=== PATIENT | male | born 1940 | race Caucasian/White ===

== ENCOUNTER 2018-01-26 11:11 | Emergency (ER) | payer OTHER ==
[2018-01-26] MEDS ORDERED: LIDOCAINE 1% MPF 5 ML VIAL ONE (12:56)
[2018-01-26] MEDS ORDERED: TETANUS & DIPHTHERIA TOX,ADULT 0.5 ML VIAL ONE (13:00)
--- NOTE | 2018-01-26 14:06 | ER ---
Nurse's Notes [facility] Name: Tom Arriola Age: 77 yrs Sex: Male : 1940 Arrival Date: 01/26/2018 Time: 11:14 Bed 10 Private MD: Montana Laguna Diagnosis: Laceration without foreign body of right upper arm Presentation: 01/26 11:16 Presenting complaint: Patient states: right elbow laceration occurred about 30 minutes sv ago. Transition of care: patient was not received from another setting of care. Onset of symptoms was January 26, 2018 at 10:45. Care prior to arrival: None. 11:16 Method Of Arrival: Ambulatory sv 11:16 Acuity: ADAM 4 sv 14:15 Risk Assessment: Do you want to hurt yourself or someone else? Patient reports no ss desire to harm self or others. Initial Sepsis Screen: Does the patient meet any 2 criteria? No. Patient's initial sepsis screen is negative. Does the patient have a suspected source of infection? No. Patient's initial sepsis screen is negative. Historical: - Allergies: 11:18 Iodinated Contrast Media - IV Dye; sv - Home Meds: 11:20 Xarelto Oral [Active]; Lotrel 10-20 mg Oral cap 1 cap once daily [Active]; simvastatin sv 40 mg Oral tab 1 tab once daily [Active]; Magnesium Oxide Oral [Active]; garlic oral oral [Active]; CoQ-10 oral oral [Active]; multivitamin oral oral [Active]; tamsulosin oral oral [Active]; Fish Oil oral oral [Active]; FiberCon Oral [Active]; - PMHx: 11:18 Atrial Fib; High Cholesterol; Hypertension; sv - PSHx: 11:18 Tonsillectomy; cataract surgery; broken leg left; foot surgery right; heart cath; sv - Immunization history:: Last tetanus immunization: > 10 years ago. - Social history:: Smoking status: Patient/guardian denies using tobacco. - Ebola Screening: : No symptoms or risks identified at this time. Screenin:13 Abuse screen: Denies threats or abuse. Denies injuries from another. Nutritional ss screening: No deficits noted. Tuberculosis screening: Never had TB. Fall Risk None identified. Assessment: 12:08 General: Appears in no apparent distress. comfortable, Behavior is calm, cooperative. ss 12:09 Pain: Complains of pain in right elbow Pain currently is 2 out of 10 on a pain scale. ss Quality of pain is described as tender, numb. Neuro: Level of Consciousness is awake, alert, obeys commands, Oriented to person, place, time, situation. Cardiovascular: Heart tones S1 S2 present Capillary refill < 3 seconds is brisk in bilateral fingers Patient's skin is warm and dry. Respiratory: Airway is patent Respiratory effort is even, unlabored, Respiratory pattern is regular, symmetrical. EENT: Oral mucosa is moist. Derm: Skin is intact, is healthy with good turgor, Skin is dry, Skin is pink, warm \T\ dry. normal. Musculoskeletal: Circulation, motion, and sensation intact. Capillary refill < 3 seconds, is brisk, Range of motion: intact in all extremities, Swelling absent. Injury Description: Laceration sustained to right elbow is APPROX 3-4 CM LACERATION TO R ELBOW. NOT BLEEDING AT THIS TIME. PT REPORTS HE IS ON XARELTO. 12:13 Reassessment: Cleaned wound with saline, dressed with wet, loose dressing. Washed arms ss with soap and water as patient had debris from mowing. remains at bedside. Vital Signs: 11:18 BP 120 / 51; Pulse 38; Resp 18; Pulse Ox 98% ; Weight 68.04 kg; Height 5 ft. 8 in. sv (172.72 cm); Pain 2/10; 13:59 Temp 98.2; Pain 0/10; ss 11:18 Body Mass Index 22.81 (68.04 kg, 172.72 cm) sv 11:18 Pt stated that his HR is normally 35-40. sv ED Course: 11:14 Patient arrived in ED. sb2 11:14 Montana Laguna MD is Private Physician. sb2 11:17 Triage completed. sv 11:19 Arm band placed on left wrist. sv 11:21 Patient placed in waiting room, Patient notified of wait time. sv 12:08 Tiny Rivas, TOM is Primary Nurse. ss 12:11 Giovanni Burr NP is PHCP. pm1 12:11 Slick Richmond MD is Attending Physician. pm1 12:13 Patient has correct armband on for positive identification. ss 13:59 Assist provider with laceration repair on above R elbow that was between 2.6 to 7.5 cm ss using sutures. 14:04 Montana Laguna MD is Referral Physician. pm1 14:15 Patient did not have IV access during this emergency room visit. Administered Medications: 13:06 Drug: Tetanus-Diphtheria Toxoid Adult 0.5 ml {Nursing Aide: [employer]. Exp: ss 04/15/2020. Lot #: [id number]. } Route: IM; Site: left deltoid; 13:59 Follow up: Response: No adverse reaction 13:40 Drug: Lidocaine (1 %) 5 ml {Note: administered by Giovanni Burr NP.} Volume: 5 ml; ss Route: Infiltration; Outcome: 14:05 Discharge ordered by . pm1 14:15 Discharged to home ambulatory, with significant other. 14:15 Condition: good 14:15 Discharge instructions given to patient, family, Instructed on discharge instructions, follow up and referral plans. Demonstrated understanding of instructions, follow-up care. 14:16 Patient left the ED. Signatures: Francoise Dee RN RN Tiny Rivas RN RN Giovanni Burr NP MARKETING SUMMER INTERN pm1 Rosi Cadena sb2 Corrections: (The following items were deleted from the chart) 11:33 11:18 BP 120 / 51; Pulse 38bpm; Resp 18bpm; Pulse Ox 98%; 68.04 kg; Height 5 ft. 8 in.; sv BMI: 22.8; Pain 2/10; sv 12:13 12:08 General: Behavior is [facility]
--- NOTE | 2018-01-26 14:06 | EDPHYS ---
Physician Documentation [facility] Name: Tom Arriola Age: 77 yrs Sex: Male : 1940 Arrival Date: 01/26/2018 Time: 11:14 Bed 10 Private MD: Montana Laguna ED Physician Slick Richmond HPI: 01/26 13:00 This 77 yrs old Male presents to ER via Ambulatory with complaints of Arm pm1 Injury, Laceration To Arm. 13:00 The patient or guardian complains of a laceration. The complaints affect the right pm1 elbow. Context: The problem was sustained at home, resulted from Laceration against door latch . Onset: The symptoms/episode began/occurred just prior to arrival. Treatment prior to arrival includes: no previous treatment. Modifying factors: The symptoms are alleviated by nothing. the symptoms are aggravated by nothing. Associated signs and symptoms: Pertinent negatives: decreased range of motion, deformity, numbness, tingling. The patient has not experienced similar symptoms in the past. The patient has not recently seen a physician, the patient's primary care provider is Dr. Laguna. Historical: - Allergies: 11:18 Iodinated Contrast Media - IV Dye; sv - Home Meds: 11:20 Xarelto Oral [Active]; Lotrel 10-20 mg Oral cap 1 cap once daily [Active]; simvastatin sv 40 mg Oral tab 1 tab once daily [Active]; Magnesium Oxide Oral [Active]; garlic oral oral [Active]; CoQ-10 oral oral [Active]; multivitamin oral oral [Active]; tamsulosin oral oral [Active]; Fish Oil oral oral [Active]; FiberCon Oral [Active]; - PMHx: 11:18 Atrial Fib; High Cholesterol; Hypertension; sv - PSHx: 11:18 Tonsillectomy; cataract surgery; broken leg left; foot surgery right; heart cath; sv - Immunization history:: Last tetanus immunization: > 10 years ago. - Social history:: Smoking status: Patient/guardian denies using tobacco. - Ebola Screening: : No symptoms or risks identified at this time. ROS: 13:00 Constitutional: Negative for fever, chills, and weight loss, Cardiovascular: Negative pm1 for chest pain, palpitations, and edema, Respiratory: Negative for shortness of breath, cough, wheezing, and pleuritic chest pain, Abdomen/GI: Negative for abdominal pain, nausea, vomiting, diarrhea, and constipation, Back: Negative for injury and pain. 13:00 Neuro: Negative for headache, weakness, numbness, tingling, and seizure. 13:00 MS/extremity: Positive for laceration, of the right elbow, Negative for decreased range of motion, deformity. 13:00 Skin: Positive for laceration(s), of the right elbow. Exam: 13:00 Constitutional: This is a well developed, well nourished patient who is awake, alert, pm1 and in no acute distress. Head/Face: Normocephalic, atraumatic. Eyes: Pupils equal round and reactive to light, extra-ocular motions intact. Lids and lashes normal. Conjunctiva and sclera are non-icteric and not injected. Cornea within normal limits. Periorbital areas with no swelling, redness, or edema. ENT: Nares patent. No nasal discharge, no septal abnormalities noted. Tympanic membranes are normal and external auditory canals are clear. Oropharynx with no redness, swelling, or masses, exudates, or evidence of obstruction, uvula midline. Mucous membranes moist. Neck: Trachea midline, no thyromegaly or masses palpated, and no cervical lymphadenopathy. Supple, full range of motion without nuchal rigidity, or vertebral point tenderness. No Meningismus. Chest/axilla: Normal chest wall appearance and motion. Nontender with no deformity. No lesions are appreciated. Cardiovascular: Regular rate and rhythm with a normal S1 and S2. No gallops, murmurs, or rubs. Normal PMI, no JVD. No pulse deficits. Respiratory: Lungs have equal breath sounds bilaterally, clear to auscultation and percussion. No rales, rhonchi or wheezes noted. No increased work of breathing, no retractions or nasal flaring. Abdomen/GI: Soft, non-tender, with normal bowel sounds. No distension or tympany. No guarding or rebound. No evidence of tenderness throughout. Back: No spinal tenderness. No costovertebral tenderness. Full range of motion. 13:00 Skin: Appearance: normal except for affected area, injury, laceration(s), the wound is approximately 2 cm(s), with a depth of 1 cm(s), of the right elbow. 13:00 Neuro: Orientation: is normal, Gait: is steady, at a normal pace, without difficulty. Vital Signs: 11:18 BP 120 / 51; Pulse 38; Resp 18; Pulse Ox 98% ; Weight 68.04 kg; Height 5 ft. 8 in. sv (172.72 cm); Pain 2/10; 13:59 Temp 98.2; Pain 0/10; ss 11:18 Body Mass Index 22.81 (68.04 kg, 172.72 cm) sv 11:18 Pt stated that his HR is normally 35-40. sv MDM: 12:11 Patient medically screened. pm1 14:03 Data reviewed: vital signs. Data interpreted: Pulse oximetry: on room air is 98 %. pm1 Interpretation: normal. Counseling: I had a detailed discussion with the patient and/or guardian regarding: the historical points, exam findings, and any diagnostic results supporting the discharge/admit diagnosis, the need for outpatient follow up, to return to the emergency department if symptoms worsen or persist or if there are any questions or concerns that arise at home. 01/26 12:50 Order name: Prolene, Sutures; Complete Time: 12:55 pm1 01/26 12:50 Order name: Dressing - Wound; Complete Time: 12:55 pm1 01/26 12:50 Order name: Gloves, Sterile; Complete Time: 12:55 pm1 01/26 12:50 Order name: Setup Suture Tray; Complete Time: 12:55 pm1 Administered Medications: 13:06 Drug: Tetanus-Diphtheria Toxoid Adult 0.5 ml {Policy Change Clerks Supervisor: [employer]. Exp: ss 04/15/2020. Lot #: [id number]. } Route: IM; Site: left deltoid; 13:59 Follow up: Response: No adverse reaction 13:40 Drug: Lidocaine (1 %) 5 ml {Note: administered by Giovanni Burr NP.} Volume: 5 ml; ss Route: Infiltration; Disposition: 01/26/18 14:05 Discharged to Home. Impression: Laceration without foreign body of right upper arm. - Condition is Stable. - Discharge Instructions: Laceration Care, Adult. - Medication Reconciliation Form, Thank You Letter, Antibiotic Education form. - Follow up: Emergency Department; When: As needed; Reason: Worsening of condition. Follow up: Montana Laguna MD; When: 10 - 14 days; Reason: Recheck today's complaints, Continuance of care, Staple/Suture removal, Re-evaluation by your physician. - Problem is new. - Symptoms have improved. Addendum: 01/27/2018 15:29 Co-signature as Attending Physician, Slick Richmodn MD I agree with the assessment and c patricio plan of care. Signatures: Francoise Dee, RN Slick Hess MD MD cha Smirch, Shelby, RN RN ss Marinas, Patrick, METER READER INSPECTOR METER READER INSPECTOR pm1 Corrections: (The following items were deleted from the chart) 01/26 14:16 14:05 01/26/2018 14:05 Discharged to Home. Impression: Laceration without foreign body ss of right upper arm. Condition is Stable. Forms are Medication Reconciliation Form, Thank You Letter, Antibiotic Education, Prescription Opioid Use. Follow up: Emergency Department; When: As needed; Reason: Worsening of condition. Follow up: Montana Laguna; When: 10 - 14 days; Reason: Recheck today's complaints, Continuance of care, Staple/Suture removal, Re-evaluation by your physician. Problem is new. Symptoms have improved. pm1
== END 2018-01-26 14:16 | disposition home or self-care (01) ==
LOC: ER 11:11
PROC: 0HQBXZZ Repair Right Upper Arm Skin, External Approach (ICD-10-PCS; principal; 2018-01-26)
DX: S41.111A Laceration without foreign body of right upper arm, initial encounter (principal); I10 Essential (primary) hypertension; E78.00 Pure hypercholesterolemia, unspecified; X58.XXXA Exposure to other specified factors, initial encounter; Y93.9 Activity, unspecified; Y92.009 Unspecified place in unspecified non-institutional (private) residence as the place of occurrence of the external cause; Y99.9 Unspecified external cause status; Z23 Encounter for immunization; Z91.041 Radiographic dye allergy status
CPT/HCPCS: 90714; 99283

== ENCOUNTER 2022-01-16 06:30 | Day surgery (SDC) | payer OTHER ==
[2022-01-15 12:18] LABS: Absolute Lymphocytes (CBC) 1.3 K/uL (0.7-4.9); Lymphocytes % 25.2 % (15.3-44.8); MPV 8.5 fL (7.6-11.3); RBC Red Blood Cell Count 4.38 M/uL (4.33-5.43)
[2022-01-15 12:29] LABS: Protime INR 1.39
[2022-01-15 12:31] LABS: Potassium 5.3 mmol/L (3.5-5.1)
[2022-01-16] MEDS ORDERED: METOPROLOL TARTRATE 5 MG/5 ML INJ IV ONE (06:43)
[2022-01-16] MEDS ORDERED: ATROPINE SULF 1 MG/10 ML SYR IV ONE (06:43)
[2022-01-16] MEDS ORDERED: MIDAZOLAM HCL 10 ML ONE (06:43)
[2022-01-16] MEDS ORDERED: NA CHLORIDE 0.9% 500 ML ONE (07:02)
[2022-01-16] MEDS ORDERED: FLUMAZENIL 0.1 MG/ML (5 mL VIAL) IV ONE (07:02)
[2022-01-16] MEDS ORDERED: HEPA 1000U/500MLS 1,000 UNIT/500 ML BAG IV ONE (08:33)
[2022-01-16 09:08] VITALS: BP 114/57; O2SAT 100
--- NOTE | 2022-01-16 22:54 | OP ---
Date of Procedure: 01/16/2022 Surgeon: Daniel Bravo MD Space Operations: Carolyn Reno. The patient tolerated the procedure well. There were no complications or blood loss. Procedure: Direct current cardioversion. Indication: Mr. Farias is 81 with recurrent atrial fibrillation with bradycardia, on anticoagulant , symptomatic, brought to the recovery room today on 01/16/2022 for a direct current cardioversion. Procedure In Detail: He received 5 mg of Versed IV push for total sedation. He received 1 shock wit h 100 joules and converted from atrial fibrillation to sinus bradycardia. We will continue his prese nt regimen including anticoagulation. He is not on beta blockers or antiarrhythmics. If his atrial fibrillation reoccurs with his bradycardia, we would refer him for a pacemaker, may be an ablation. He will go home after he wakes up today. Final Diagnosis: Successful cardioversion from atrial fibrillation to sinus bradycardia. ESTEVAN/LYNN Voice ID: [id number] Report ID: [id number]
--- NOTE | 2022-01-18 14:35 | EKG ---
Test Date: 2022-01-16 Test Time: 07:43:17 Real Estate Internship: NALLELY MEASUREMENT RESULTS: Intervals: Rate: 31 WY: 250 QRSD: 98 QT: 530 QTc: 380 [place]: P: 1 WY: 250 QRS: 33 T: 47 INTERPRETIVE STATEMENTS: Marked sinus bradycardia with 1st degree AV block T wave abnormality, consider anterior ischemia Abnormal ECG Compared to ECG 10/26/2016 06:47:52 First degree AV block now present T-wave abnormality now present Possible ischemia now present Electronically Signed On 01-18-22 14:33:42 CDT by Celso Gay
== END 2022-01-16 08:25 | disposition home or self-care (01) ==
LOC: CCL 06:30
DX: I48.91 Unspecified atrial fibrillation (principal); R00.1 Bradycardia, unspecified; I44.0 Atrioventricular block, first degree; Z20.822 Contact with and (suspected) exposure to COVID-19; Z91.041 Radiographic dye allergy status
CPT/HCPCS: 93005; 85025; 80048; 36415; 85610; 85730; 92960; U0003; J2250; J7040; J1644

== ENCOUNTER → 2022-09-19 | Day surgery (SDC) | payer OTHER ==
[~2022-09-19] MED LIST: ATROPINE SULF 1 MG/10 ML SYR IV ONE; FENTANYL CITR 100 MCG/2 ML ONE; FLUMAZENIL 0.1 MG/ML (5 mL VIAL) IV ONE; LIDOCAINE VISCOUS 2% SOLN 15 ML UDC ONE; METOPROLOL TARTRATE 5 MG/5 ML INJ IV ONE; MIDAZOLAM HCL 10 ML ONE; NA CHLORIDE 0.9% 500 ML ONE; PHENOL 1.4% ORAL SPRAY 180ML ONE
[2022-09-19 14:55] LABS: Absolute Lymphocytes (CBC) 1.3 K/uL (0.7-4.9); Hematocrit 34.6 % (39.6-49.0); MCV 97.3 fL (80-100); MPV 8.6 fL (7.6-11.3); RBC Red Blood Cell Count 3.56 M/uL (4.33-5.43)
[2022-09-19 14:57] LABS: Potassium 5.5 mmol/L (3.5-5.1)
[2022-09-19 16:40] LABS: Protime INR 1.42
[2022-09-25 15:58] VITALS: BP 104/42; O2SAT 100
--- NOTE | 2022-09-26 06:24 | TEE ---
TRANSESOPHAGEAL ECHOCARDIOGRAM REPORT CARDIOLOGY DEPARTMENT DATE OF STUDY: 09/25/2022 HEIGHT: 5'8" WEIGHT: 148 DIAGNOSIS: CARDIOVERSION HAIR SPRING WINDER COMMENTS: TAMIA CARDIAC HISTORY: CATHERIZATION: SURGERY: PROSTHETIC VALVE: PACEMAKER: 2 DIMENSIONAL ASSESSMENT: RIGHT ATRIUM: LEFT ATRIUM: RIGHT VENTRICLE: LEFT VENTRICLE: TRICUSPID VALVE: MITRAL VALVE: PULMONIC VALVE: AORTIC VALVE: PERICARDIAL EFFUSION: AORTIC ROOT: EJECTION FRACTION: 55-60 % LEFT VENTRICULAR WALL MOTION: DOPPLER/COLOR FLOW: COMMENTS: 1. NORMAL LEFT VENTRICULAR EJECTION FRACTION 55-60% 2. MILD MITRAL REGURGITATION 3. NO LEFT ATRIAL APPENDAGE THROMBUS IS SEEN TECHNOLOGIST: LORENZO FITCH
--- NOTE | 2022-09-30 17:33 | EKG ---
Test Date: 2022-09-25 Test Time: 12:40:57 Pharmacy Associate: NALLELY MEASUREMENT RESULTS: Intervals: Rate: 35 HI: 264 QRSD: 90 QT: 498 QTc: 380 [place]: P: 38 HI: 264 QRS: 34 T: 61 INTERPRETIVE STATEMENTS: Marked sinus bradycardia with 1st degree AV block with premature atrial complexes Abnormal ECG Compared to ECG 01/16/2022 07:43:17 Atrial premature complex(es) now present T-wave abnormality no longer present Possible ischemia no longer present Electronically Signed On 09-30-22 17:20:13 SINGLE POINTED OPERATOR by Celso Gay
== END | disposition home or self-care (01) ==
LOC: CCL 06:00
PROVIDERS: ATTEND Internal Medicine
DX: I48.91 Unspecified atrial fibrillation (principal); I35.2 Nonrheumatic aortic (valve) stenosis with insufficiency; I25.10 Atherosclerotic heart disease of native coronary artery without angina pectoris; I65.23 Occlusion and stenosis of bilateral carotid arteries; I44.0 Atrioventricular block, first degree; R00.1 Bradycardia, unspecified; I10 Essential (primary) hypertension; E78.5 Hyperlipidemia, unspecified; Z87.891 Personal history of nicotine dependence; Z79.01 Long term (current) use of anticoagulants; Z79.899 Other long term (current) drug therapy; Z91.041 Radiographic dye allergy status
CPT/HCPCS: 36415; 80048; 85025; 85610; 85730; 92960; 93005; 93312; J0461; J2250; J3010; J7040

== ENCOUNTER 2022-10-04 19:30 | Emergency (ER) | payer OTHER ==
--- OUTSIDE RECORDS SUMMARY | 2022-10-04 19:53 | XMS REPORT | Continuity of Care Document ---
:1940 Author Organization [facility] t Address [address] [place] [address] Dr. Woods [address] [place] [id number] Care Team Providers Name Role Phone GRACIE SHOOK Attending Clinician Unavailable Payers Payer Name Policy Type Policy Number Effective Date Expiration Date S ource [employer] MEDICARE ADV [id number] 2020 00:00:00 Problems This patient has no known problems. Allergies, Adverse Reactions, Alerts Allergy Allergy Status Severity Reaction(s) Onset Inactive Treating Comm ents Source Name Type Date Date Clinician NO KNOWN Drug Active [facility] ALLERGIE Class [facility] Medications This patient has no known medications. Procedures This patient has no known procedures. Encounters Start End Encounter Admission Attending Care Care Encounter Source Date/Time Date/Time Type Type Clinicians Facility Department ID 2020-10-17 2020-10-17 Outpatient [facility] [id number] [facility] 12:20:00 12:20:00 [id number] [facility] 2020-10-17 2020-10-17 Outpatient Carla SHOOK [facility] [id number] [facility] 12:20:00 12:20:00 GRACIE [facility] Results This patient has no known results.
--- NOTE | 2022-10-04 20:10 | ER ---
[facility] Name: Tom Arriola Age: 81 yrs Sex: Male : 1940 Arrival Date: 10/04/2022 Time: 19:33 Bed IW1 Private MD: Diagnosis: Coronavirus infection, unspecified Presentation: 10/04 19:42 Chief complaint: Patient states: "I tested positive for COVID today and I have a cough as6 and sore throat. I just want to get checked out because I'm older and have heart problems". Coronavirus screen: Client presents with at least one sign or symptom that may indicate coronavirus-19. Ebola Screen: No symptoms or risks identified at this time. Initial Sepsis Screen: Does the patient meet any 2 criteria? No. Patient's initial sepsis screen is negative. Does the patient have a suspected source of infection? No. Patient's initial sepsis screen is negative. Risk Assessment: Do you want to hurt yourself or someone else? Patient reports no desire to harm self or others. Onset of symptoms was October 04, 2022. 19:42 Method Of Arrival: Ambulatory as6 19:42 Acuity: ADAM 5 as6 Triage Assessment: 19:53 General: Appears in no apparent distress. Behavior is calm, cooperative. Pain: Denies as6 pain. EENT: Parent/caregiver reports the patient having sore throat . Respiratory: Respiratory effort is even, unlabored, Respiratory pattern is regular, symmetrical, Parent/caregiver reports the patient having cough that is. Historical: - Allergies: 19:46 Iodinated Contrast Media - IV Dye; as6 - PMHx: 19:46 Atrial Fib; High Cholesterol; Hypertension; Kidney disease; as6 - PSHx: 19:46 leg; foot; Tonsillectomy; as6 - Immunization history:: Client reports receiving the 2nd dose of the Covid vaccine, pfizer Pneumococcal vaccine is up to date, Flu vaccine is up to date. - Social history:: Smoking status: Patient denies any tobacco usage or history of. Screenin:12 [facility] ED Fall Risk Assessment (Adult) Score/Fall Risk Level 0 - 2 = Low Risk. Abuse as6 screen: Denies threats or abuse. Denies injuries from another. Nutritional screening: No deficits noted. Tuberculosis screening: No symptoms or risk factors identified. Vital Signs: 19:42 BP 155 / 40; Pulse 55; Resp 18 S; Temp 98.5(O); Pulse Ox 99% on R/A; Weight 68.04 kg as6 (R); Height 5 ft. 8 in. (172.72 cm) (R); Pain 0/10; 19:42 Body Mass Index 22.81 (68.04 kg, 172.72 cm) as6 ED Course: 19:33 Patient arrived in ED. jj6 19:46 Triage completed. as6 19:48 Arm band placed on. as6 19:53 Terrence Estrada, TOM is Primary Nurse. as6 19:59 Francoise Lyons MD is Attending Physician. sd2 20:12 Patient has correct armband on for positive identification. as6 20:17 No provider procedures requiring assistance completed. Patient did not have IV access as6 during this emergency room visit. Administered Medications: No medications were administered Medication: 20:17 VIS not applicable for this client. as6 Outcome: 20:09 Discharge ordered by . sd2 20:16 Discharged to home ambulatory. as6 20:16 Condition: stable 20:16 Discharge instructions given to patient, Instructed on discharge instructions, follow up and referral plans. Demonstrated understanding of instructions, follow-up care. 20:17 Patient left the ED. as6 Signatures: Pippa Singh6 Terrence Estrada, TOM RN as6 Francoise Lyons MD MD sd2
--- NOTE | 2022-10-04 20:18 | EDPHYS ---
Physician Documentation [facility] Name: Tom Arriola Age: 81 yrs Sex: Male : 1940 Arrival Date: 10/04/2022 Time: 19:33 Bed IW1 Private MD: ED Physician Francoise Lyons HPI: 10/04 20:15 This 81 yrs old Male presents to ER via Ambulatory with complaints of Recent COVID+ sd2 test, Fever, Cough, Sore Throat. 20:15 81-year-old male presents with chief complaint of flulike symptoms. He reports he sd2 started today with a mild cough and sore throat. He has not had any actual fever but states that his temperature raised by a full degree and that concerned him. He took a home COVID test which did return positive today. He came to the hospital seeking out further treatment options to make sure "it does not get too bad." He is vaccinated for COVID and has received both of his shots as well as one booster. He denies any significant chest pain or shortness of breath. He is currently on Xarelto for A-fib and has no other acute complaints at this time.. Historical: - Allergies: 19:46 Iodinated Contrast Media - IV Dye; as6 - PMHx: 19:46 Atrial Fib; High Cholesterol; Hypertension; Kidney disease; as6 - PSHx: 19:46 leg; foot; Tonsillectomy; as6 - Immunization history:: Client reports receiving the 2nd dose of the Covid vaccine, pfizer Pneumococcal vaccine is up to date, Flu vaccine is up to date. - Social history:: Smoking status: Patient denies any tobacco usage or history of. ROS: 20:15 Constitutional: Negative for fever, chills, and weight loss, Eyes: Negative for injury, sd2 pain, redness, and discharge, ENT: Negative for injury, pain, and discharge, Cardiovascular: Negative for chest pain, palpitations, and edema. 20:15 MS/Extremity: Negative for injury and deformity, Skin: Negative for injury, rash, and discoloration, Neuro: Negative for headache, numbness and tingling. 20:15 ENT: Positive for sore throat, Negative for injury or acute deformity, ear pain, nasal discharge, sinus congestion. 20:15 Respiratory: Positive for cough, Negative for dyspnea on exertion, shortness of breath, wheezing. Exam: 20:15 Constitutional: This is a well developed, well nourished patient who is awake, alert, sd2 and in no acute distress. Head/Face: Normocephalic, atraumatic. Eyes: EOMI, normal conjunctiva bilaterally Chest/axilla: Normal chest wall appearance and motion. Nontender with no deformity. Cardiovascular: Regular rate and rhythm with a normal S1 and S2. No gallops, murmurs, or rubs. 2+ distal pulses. Respiratory: Lungs have equal breath sounds bilaterally, clear to auscultation and percussion. No rales, rhonchi or wheezes noted. No increased work of breathing, no retractions or nasal flaring. Abdomen/GI: Soft, non-tender, with normal bowel sounds. No guarding or rebound. No evidence of tenderness throughout. Skin: Warm, dry with normal turgor. Normal color with no rashes, no lesions, and no evidence of cellulitis. MS/ Extremity: Pulses equal, no cyanosis. Neurovascular intact. Full, normal range of motion. Ambulatory without difficulty. Psych: Awake, alert, with orientation to person, place and time. Behavior, mood, and affect are within normal limits. Vital Signs: 19:42 BP 155 / 40; Pulse 55; Resp 18 S; Temp 98.5(O); Pulse Ox 99% on R/A; Weight 68.04 kg as6 (R); Height 5 ft. 8 in. (172.72 cm) (R); Pain 0/10; 19:42 Body Mass Index 22.81 (68.04 kg, 172.72 cm) as6 MDM: 19:59 Patient medically screened. sd2 20:15 Differential diagnosis: Differential diagnosis includes but is not limited to: Viral sd2 URI, acute otitis media, acute otitis externa, pneumonia, UTI, COVID, flu, herpangina among others. Data reviewed: vital signs, nurses notes. Care significantly affected by the following chronic conditions: Hypertension, Chronic Kidney Disease. Counseling: I had a detailed discussion with the patient and/or guardian regarding: the historical points, exam findings, and any diagnostic results supporting the discharge/admit diagnosis, the need for outpatient follow up, to return to the emergency department if symptoms worsen or persist or if there are any questions or concerns that arise at home. ED course: The patient is very well-appearing and nontoxic at this time with very mild COVID symptoms. His vital signs are very stable and he does not display any respiratory distress or hypoxia. He was advised of continued supportive care for his symptoms. Paxlovid would not be recommended at this time due to the patient's blood thinner medication that he is on. He was advised of this as well. His lungs are very clear on exam and I do not believe a chest x-ray is indicated at this time or antibiotics. The patient is comfortable with plan for discharge and verbalizes understanding of discharge plan and strict return precautions.. Administered Medications: No medications were administered Disposition Summary: 10/04/22 20:09 Discharge Ordered Location: Home sd2 Problem: new sd2 Symptoms: are unchanged sd2 Condition: Stable sd2 Diagnosis - Coronavirus infection, unspecified sd2 Followup: sd2 - With: Private Physician - When: 2 - 3 days - Reason: Recheck today's complaints, Continuance of care, Re-evaluation by your physician Discharge Instructions: - Discharge Summary Sheet sd2 - COVID-19 sd2 - 10 Things You Can Do to Manage Your COVID-19 Symptoms at Home - [facility] sd2 Forms: - Medication Reconciliation Form sd2 - Thank You Letter sd2 - Antibiotic Education sd2 - Prescription Opioid Use sd2 Signatures: Terrence Estrada, RN RN as6 Francoise Lyons MD MD sd2
[2022-10-04 20:47] VITALS: BP 155/40; TEMP 98.5; O2SAT 99
== END 2022-10-04 20:17 | disposition home or self-care (01) ==
LOC: ER 19:30
DX: U07.1 COVID-19 (principal); I12.9 Hypertensive chronic kidney disease with stage 1 through stage 4 chronic kidney disease, or unspecified chronic kidney disease; N18.9 Chronic kidney disease, unspecified; Z91.041 Radiographic dye allergy status
CPT/HCPCS: 99281